=== PATIENT | male | born 1955 | race Caucasian/White ===

== ENCOUNTER 2020-05-29 10:46 | Emergency (ER) | payer SELFPAY ==
[2020-05-29] MEDS ORDERED: ONDANSETRON 4 MG TAB.RAPDIS PO ONE (11:06)
--- NOTE | 2020-05-29 11:07 | ER Document Report ---
ED Medical Screen (RME) - General Chief Complaint: Abdominal Pain Stated Complaint: ABDOMINAL PAIN Time Seen by Provider: 05/29/20 11:03 Notes: Patient presents complaining of constipation for the past week. Patient reports abdominal pain, rectal pain and nausea. Patient states that he has had some blood from his rectum. Patient states he does feel lightheaded as though he could pass out. I have greeted and performed a rapid initial assessment of this patient. A comprehensive ED assessment and evaluation of the patient, analysis of test results and completion of the medical decision making process will be conducted by additional ED providers. Physical Exam - Vital signs Vitals: Temp Pulse Resp BP Pulse Ox 97.4 F 99 16 165/89 H 99 05/29/20 10:49 05/29/20 10:49 05/29/20 10:49 05/29/20 10:49 05/29/20 10:49 - General General appearance: Alert, Anxious Notes: Patient refuses to sit in triage, restless in triage, patient reports rectal pain and abdominal tenderness Course - Vital Signs Vital signs: Temp Pulse Resp BP Pulse Ox 97.4 F 99 16 165/89 H 99 05/29/20 10:49 05/29/20 10:49 05/29/20 10:49 05/29/20 10:49 05/29/20 10:49
[2020-05-29] MEDS ORDERED: MAGNESIUM CITRATE 296 ML BOTTLE PO ONE (11:50)
[2020-05-29] MEDS ORDERED: MINERAL OIL 30 ML UDCUP PR ONE (11:50)
--- NOTE | 2020-05-29 11:56 | ER Document Report ---
ED GI/ - General Chief Complaint: Constipation Stated Complaint: ABDOMINAL PAIN Time Seen by Provider: 05/29/20 11:03 Notes: CHIEF COMPLAINT: Constipation HPI: 65-year-old male presenting for constipation for 1 week. Patient is on a fentanyl patch for chronic left leg pain. States occasionally this makes him constipated. He forgot to take stool softeners all week. Patient states he feels slightly bloated but has no abdominal pain he does have nausea. Patient denies any dizziness chest pain shortness of breath. States that he had some rectal discomfort trying to pass stool earlier today which made him feel lightheaded because of the pain so he called EMS. He states that he tried to digitally disimpact himself and now is having very slight bleeding which he feels might have come from that or from a hemorrhoid. ROS: See HPI - all other systems were reviewed and are otherwise negative Constitutional: no fever Eyes: no drainage, no blurred vision ENT: no runny nose, no sore throat Cardiovascular: no chest pain Resp: no SOB, no cough GI: no vomiting, no diarrhea, no abdominal pain, positive constipation, positive nausea : no dysuria Integumentary: no rash Allergy: no hives Musculoskeletal: no extremity pain or swelling Neurological: no numbness/tingling, no weakness MEDICATIONS: I agree with the patient medications as charted by the RN. ALLERGIES: I agree with the allergies as charted by the RN. PAST MEDICAL HISTORY/PAST SURGICAL HISTORY: Reviewed and agree as charted by RN. SOCIAL HISTORY: Reviewed and agree as charted by RN. FAMILY HISTORY: No significant familial comorbid conditions directly related to patient complaint EXAM: Reviewed vital signs as charted by RN. CONSTITUTIONAL: Alert and oriented and responds appropriately to questions. Well-appearing; well-nourished HEAD: Normocephalic; atraumatic EYES: PERRL; Conjunctivae clear, sclerae non-icteric ENT: normal nose; no rhinorrhea; moist mucous membranes; pharynx without lesions noted, no uvula edema or deviation, no tonsillar hypertrophy, phonation normal NECK: Supple without meningismus; non-tender; no cervical lymphadenopathy, no masses CARD: RRR; no murmurs, no clicks, no rubs, no gallops; symmetric distal pulses RESP: Normal chest excursion without splinting or tachypnea; breath sounds clear and equal bilaterally; no wheezes, no rhonchi, no rales, pulse oximetry 97% on room air not hypoxic ABD/GI: Normal bowel sounds; non-distended; soft, non-tender, no rebound, no guarding; no palpable organomegaly or masses. BACK: The back appears normal and is non-tender to palpation, there is no CVA tenderness EXT: Normal ROM in all joints; non-tender to palpation; no cyanosis, no effusions, no edema SKIN: Normal color for age and race; warm; dry; good turgor; no acute lesions noted NEURO: Moves all extremities equally; Motor and sensory function intact PSYCH: The patient's mood and manner are appropriate. Grooming and personal hygiene are appropriate. MDM: EKG with a heart rate of 91, IN 148, QT 384, QTc 473. Left anterior fascicular block no other abnormalities. Abnormal EKG, interpreted by emergency department physicians. 65-year-old male presenting for evaluation of constipation for a week. Initial screening orders from triage process. He has no abdominal pain, has no dizziness except because of pain when trying to pass a hard stool. Will give mag citrate and enema and reassess - Related Data Allergies/Adverse Reactions: trazodone Allergy (Verified 05/29/20 11:08) Past Medical History - Social History Smoking Status: Unknown if Ever Smoked Family History: Reviewed & Not Pertinent Physical Exam - Vital signs Vitals: Temp Pulse Resp BP Pulse Ox 97.4 F 99 16 165/89 H 99 05/29/20 10:49 05/29/20 10:49 05/29/20 10:49 05/29/20 10:49 05/29/20 10:49 Course - Re-evaluation Re-evalutation: 05/29/20 13:28 Patient had a very large bowel movement abdomen is now soft patient states he feels much better. There was no blood mixed with the stool. Will discharge home on senna, follow-up PCP - Vital Signs Vital signs: Temp Pulse Resp BP Pulse Ox 97.4 F 99 16 165/89 H 99 05/29/20 10:49 05/29/20 10:49 05/29/20 10:49 05/29/20 10:49 05/29/20 10:49 - Laboratory Results Critical Laboratory Results Reviewed: No Critical Results - Radiology Results Critical Radiology Results Reviewed: No Critical Results Discharge - Discharge Clinical Impression: Abdominal pain Qualifiers: Abdominal location: generalized Qualified Code(s): R10.84 - Generalized abdominal pain Constipation Qualifiers: Constipation type: other constipation type Qualified Code(s): K59.09 - Other constipation Condition: Stable Disposition: HOME, SELF-CARE Additional Instructions: Take the senna as prescribed to help with bowel movements. Follow-up with your primary care provider for a bowel regimen that you may continue on to prevent further episodes of constipation. Prescriptions: Sennosides [Senna] 8.6 mg PO DAILY #10 capsule
--- NOTE | 2020-05-29 12:07 | EKG REPORT ---
SEVERITY:- ABNORMAL ECG - SINUS RHYTHM LEFT ANTERIOR FASCICULAR BLOCK : Confirmed by: Jayden Resendez MD 29-May-2020 12:05:59
--- NOTE | 2020-05-29 12:10 | RADIOLOGY REPORT (SQ) ---
EXAM DESCRIPTION: KUB/ABDOMEN (SINGLE VIEW) IMAGES COMPLETED DATE/TIME: 05/29/2020 11:50 am REASON FOR STUDY: abd pain, constipation COMPARISON: None. NUMBER OF VIEWS: Two views. TECHNIQUE: AP supine and upright views of the abdomen were obtained. LIMITATIONS: None. FINDINGS: BOWEL GAS PATTERN: There is a moderate colorectal fecal burden. There are no dilated loop s of bowel or differential fluid levels. CALCIFICATIONS: Pelvic phlebolith. SOFT TISSUES: No acute gross abnormality. HARDWARE: None in the abdomen. BONES: Degenerative spondylosis of the lumbar spine. OTHER: No pneumatosis or free intraperitoneal gas. IMPRESSION: Nonobstructive bowel gas pattern with a moderate colorectal fecal burden. TECHNICAL DOCUMENTATION: JOB ID: [id number] 2010 [employer]- All Rights Reserved Reading location - IP/workstation name: [email or web address]
[2020-05-29] MEDS ORDERED: METOCLOPRAMIDE HCL INJ/PF 10 MG/2 ML SDV IV ONE (12:57)
[2020-05-29 13:52] VITALS: BP 130/86
== END 2020-05-29 13:52 | disposition home or self-care (01) ==
LOC: ER 10:46
DX: R10.84 Generalized abdominal pain (principal); K59.09 Other constipation; K62.89 Other specified diseases of anus and rectum; R11.0 Nausea; G89.29 Other chronic pain; M79.605 Pain in left leg; Z79.891 Long term (current) use of opiate analgesic
CPT/HCPCS: 93005; 99285; 96374; 74018; 93010; J3490 ×2; S0119; J2765